=== PATIENT | male | born 1975 | race Caucasian/White ===

== ENCOUNTER → 2019-08-13 | Outpatient (CLI) | payer OTHER | LOC: M.RAD 14:39 | DX: M54.5 Low back pain (principal); M54.6 Pain in thoracic spine; J02.9 Acute pharyngitis, unspecified ==

== ENCOUNTER → 2020-06-20 | Outpatient (CLI) | payer OTHER | LOC: M.ULTRA 07:23 | PROVIDERS: ATTEND Family Medicine | DX: R10.11 Right upper quadrant pain (principal); R19.8 Other specified symptoms and signs involving the digestive system and abdomen ==